=== PATIENT | female | born 1935 | race Two or more races ===

== ENCOUNTER 2023-05-30 09:48 | Outpatient (OUT) | payer MEDICARE, SELFPAY ==
[2023-05-30 11:25] LABS: Anion Gap 9.9; BUN Creatinine Ratio 21.3; Calcium 9.5 mg/dL (8.5-10.1); Carbon Dioxide 32.1 mmol/L (21.0-32.0); Chloride 102 mmol/L (98-107); Estimated GFR (African America >60 (>=60); Estimated GFR (Non-African Ame >60 (>=60); Glucose 87 mg/dL (74-106); Sodium 140 mmol/L (136-145)
[2023-05-30 11:55] LABS: Basophils Percent Auto 0.5 % (0.2-2.0); Eosinophils Absolute Auto 0.3 10^3/uL (0.0-0.7); Eosinophils Percent Auto 4.2 % (0.9-7.0); Hematocrit 38.3 % (36.0-48.0); Immature Granulocytes Abs Auto 0.02 10^3/uL (0.00-0.03); Immature Granulocytes Pct Auto 0.3 % (0.0-0.5); Lymphocytes Absolute Auto 1.1 10^3/uL (1.2-3.8); Mean Corpuscular HGB Conc 33.9 g/dL (29.9-35.2); Mean Corpuscular Hemoglobin 31.9 pg (26.7-34.0); Mean Corpuscular Volume 93.9 fL (81.0-99.0); Mean Platelet Volume 10.1 fL (9.5-13.5); Monocytes Absolute Auto 0.6 10^3/uL (0.3-0.8); Monocytes Percent Auto 8.8 % (1.7-12.0); Neutrophils Absolute Auto 4.6 10^3/uL (1.4-6.5); Neutrophils Percent Auto 70.2 % (43.0-75.0); Platelet Count 261 10^3/uL (150-450); Red Blood Count 4.08 10^6/uL (4.20-5.40); Red Cell Distribution Width 12.5 % (11.0-15.0); White Blood Count 6.6 10^3/uL (4.0-11.0)
== END 2023-05-30 09:49 | disposition home or self-care (01) ==
PROVIDERS: PCP Family Medicine; Visit Provider Obstetrics & Gynecology
DX: Z01.812 Encounter for preprocedural laboratory examination (principal); N95.0 Postmenopausal bleeding; R10.2 Pelvic and perineal pain; I10 Essential (primary) hypertension; D64.9 Anemia, unspecified
CPT/HCPCS: 80048; 85025

== ENCOUNTER 2023-06-02 09:42 | Day surgery (SDC) | payer MEDICARE, SELFPAY ==
[2023-05-30 10:43] VITALS: BP 140/66; PULSE 51; RESP 14; TEMP 36.3; O2SAT 97; BMI 24.9
[2023-06-02] VITALS (7 sets, daily range): BP systolic 144–168; BP diastolic 55–66; PULSE 44–57; RESP 10–16; TEMP 35.9–36.3; O2SAT 95–100
[2023-06-02 09:57] LABS: Basophils Percent Auto 0.6 % (0.2-2.0); Eosinophils Absolute Auto 0.2 10^3/uL (0.0-0.7); Eosinophils Percent Auto 3.6 % (0.9-7.0); Hematocrit 37.7 % (36.0-48.0); Hemoglobin 12.8 g/dL (12.0-16.0); Immature Granulocytes Abs Auto 0.01 10^3/uL (0.00-0.03); Immature Granulocytes Pct Auto 0.1 % (0.0-0.5); Lymphocytes Absolute Auto 1.2 10^3/uL (1.2-3.8); Lymphocytes Percent Auto 17.3 % (20.5-60.0); Mean Corpuscular Hemoglobin 31.6 pg (26.7-34.0); Mean Corpuscular Volume 93.1 fL (81.0-99.0); Mean Platelet Volume 9.5 fL (9.5-13.5); Monocytes Absolute Auto 0.5 10^3/uL (0.3-0.8); Monocytes Percent Auto 8.1 % (1.7-12.0); Neutrophils Absolute Auto 4.7 10^3/uL (1.4-6.5); Neutrophils Percent Auto 70.3 % (43.0-75.0); Platelet Count 233 10^3/uL (150-450); Red Blood Count 4.05 10^6/uL (4.20-5.40); Red Cell Distribution Width 12.4 % (11.0-15.0); White Blood Count 6.7 10^3/uL (4.0-11.0)
[2023-06-02] MEDS: LACTATED RINGER'S SOLUTION 1,000 ML 50 ML IV (10:40)
--- NOTE | 2023-06-02 12:43 | PM.ONB ---
Brief Operative Note Date of procedure: 06/02/23 Pre-op diagnosis: pmb Post-op diagnosis: same as pre-op Procedure: Brief Operative Note Date of procedure: 06/02/23 Pre-op diagnosis: pmb Post-op diagnosis: same as pre-op Procedure: NAME OF PROCEDURE: [ D&c hysteroscopy] PROCEDURE: The patient was taken back to the Operating Room where she was prepped and draped in normal sterile fashion after being placed under general anesthesia without difficulty. She was also placed in the dorsal lithotomy position. A weighted speculum was placed in the patient?s vagina. The anterior lip of the cervix was identified and grasped with a single tooth tenaculum. The patient?s uterus was unable to be sounded, attempted dilation with hegars, was uncertain of location dt severe cervical stenosis, decided to abort procedure in order to prevent uterine perforation. pt taken out of lithotomy and taken to recovery in stable condition Anesthesia: GROVER Surgeon: Aguilar Kimble Estimated blood loss (mL): 5 Pathology: none sent Condition: stable Disposition: PACU Anesthesia: GROVER Surgeon: Aguilar Kimble Estimated blood loss (mL): 5 Pathology: none sent Condition: stable Disposition: PACU
--- NOTE | 2023-06-02 13:54 | PC.NURSE ---
Up to bathroom and voided clear yellow without difficulty; peripad dry
== END 2023-06-02 13:57 | disposition home or self-care (01) ==
PROVIDERS: PCP Family Medicine; Visit Provider Obstetrics & Gynecology
PROC: (CPT 58558; principal; 2023-06-02 11:00)
DX: N95.0 Postmenopausal bleeding (principal); R10.2 Pelvic and perineal pain; I10 Essential (primary) hypertension; D64.9 Anemia, unspecified; E03.9 Hypothyroidism, unspecified; K21.9 Gastro-esophageal reflux disease without esophagitis; N88.2 Stricture and stenosis of cervix uteri
CPT/HCPCS: 58558; 36415; 85025; J2704